=== PATIENT | female | born 1955 | race African-American/Black ===

== ENCOUNTER 2021-04-13 14:40 | Emergency (ER) | payer BC, OTHER ==
[~2021-04-13] VITALS: Ht 160 cm; Wt 73.0 kg
[2021-04-13 14:59] VITALS: BP 132/81
[2021-04-13] MEDS ORDERED: DIPHENHYDRAMINE 25MG CAPSULE PO ONE (15:30)
[2021-04-13] MEDS ORDERED: PREDNISONE 20MG TABLET PO ONE (15:30)
[2021-04-13] MEDS ORDERED: P20 PO (15:38)
[2021-04-13] MEDS ORDERED: DIPH25CA83 MT (15:38)
== END 2021-04-13 15:50 | disposition home or self-care (01) ==
LOC: ER 14:40
DX: T78.40XA Allergy, unspecified, initial encounter (principal); E78.00 Pure hypercholesterolemia, unspecified; I10 Essential (primary) hypertension; E11.9 Type 2 diabetes mellitus without complications; Z98.890 Other specified postprocedural states; X58.XXXA Exposure to other specified factors, initial encounter
CPT/HCPCS: 99283; J7512; Q0163

== ENCOUNTER 2021-12-06 16:54 | Emergency (ER) | payer BC, OTHER ==
[~2021-12-06] VITALS: Ht 157.5 cm; Wt 65.0 kg
[~2021-12-06 16:54] MED LIST: DIPH25CA83 MT; P20 PO
[2021-12-06] MEDS ORDERED: OFLO5DRO3 EACHEYE (20:31)
[2021-12-06] MEDS ORDERED: LORA-1087 MT (20:31)
[2021-12-06 20:55] VITALS: BP 177/92
== END 2021-12-06 20:57 | disposition home or self-care (01) ==
LOC: ER 16:54
DX: B34.9 Viral infection, unspecified (principal); J30.9 Allergic rhinitis, unspecified; Z20.822 Contact with and (suspected) exposure to COVID-19
CPT/HCPCS: 71045; 82962; 87426; 99284

== ENCOUNTER 2021-12-12 10:12 | Emergency (ER) | payer BC, OTHER ==
[~2021-12-12] VITALS: Ht 162.6 cm; Wt 67.0 kg
[~2021-12-12 10:12] MED LIST changes: +LORA-1087 MT; +OFLO5DRO3 EACHEYE
[2021-12-12] MEDS ORDERED: IBUPROFEN 400MG TABLET PO ONE (11:30)
[2021-12-12 12:57] VITALS: BP 125/55
== END 2021-12-12 12:58 | disposition home or self-care (01) ==
LOC: ER 10:24
DX: B34.9 Viral infection, unspecified (principal); H92.03 Otalgia, bilateral; J02.9 Acute pharyngitis, unspecified; Z20.822 Contact with and (suspected) exposure to COVID-19; E11.9 Type 2 diabetes mellitus without complications; E78.00 Pure hypercholesterolemia, unspecified; I10 Essential (primary) hypertension
CPT/HCPCS: 87426; 99283